=== PATIENT | male | born 1990 | race Caucasian/White ===

== ENCOUNTER 2022-10-28 04:17 | Emergency (ER) | payer OTHER ==
[~2022-10-28] VITALS: Ht 177.8 cm; Wt 100.0 kg
[2022-10-28 04:38] VITALS: BP 167/86
--- NOTE | 2022-10-28 04:42 | NUR ---
Pt has no medical complaints only that his shoulders ache from being in hand cuffs and that he is thirsty. He did drink a liter of ice water just now.
== END 2022-10-28 04:50 ==
LOC: ER 04:18
DX: R00.0 Tachycardia, unspecified (principal); R45.1 Restlessness and agitation; F19.10 Other psychoactive substance abuse, uncomplicated; Z79.899 Other long term (current) drug therapy
CPT/HCPCS: 99283